=== PATIENT | female | born 1995 | race Caucasian/White ===

== ENCOUNTER 2017-07-24 14:41 | Emergency (ER) | payer BC ==
[2017-07-24] MEDS ORDERED: IPRATROPIUM/ALBUTEROL 3 ML DEYVIAL ONE (14:50)
[2017-07-24] MEDS ORDERED: methylPREDNISolone SOD SUCC 125 MG/2 ML VIAL IVP ONE (14:53)
[2017-07-24] MEDS ORDERED: RANITIDINE 50 MG/2 ML VIAL IVP ONE (14:53)
[2017-07-24] MEDS ORDERED: IPRATROPIUM/ALBUTEROL 3 ML DEYVIAL IH ONE (14:54)
--- NOTE | 2017-07-24 15:11 | EDPHY ---
H & P Stated Complaint: Allergic Reaction Time Seen by Provider: 07/24/17 14:41 - Personal History LMP (Females 10-55): Now Current Tetanus Diphtheria and Acellular Pertussis (TDAP): Yes - Medical/Surgical History Hx Asthma: No Hx Chronic Respiratory Disease: No Hx Diabetes: No Hx Cardiac Disease: No Hx Renal Disease: No Hx Cirrhosis: No Hx Alcoholism: No Hx HIV/AIDS: No Hx Splenectomy or Spleen Trauma: No Other PMH: tree nut allergy - Social History Smoking Status: Never smoked Constitutional: Initial Vital Signs Temperature (C) 36.8 C 07/24/17 14:58 Heart Rate 83 07/24/17 14:58 Respiratory Rate 20 07/24/17 14:58 Blood Pressure 138/79 H 07/24/17 14:58 O2 Sat (%) 100 07/24/17 14:58 O2 Delivery Mode Room Air Allergies/Adverse Reactions: tree nut Allergy (Verified 12/13/15 02:11) Home Medications: Medication Instructions Recorded Concerta 12/13/15 Medical Decision Making ED Course/Re-evaluation: CHIEF COMPLAINT: Exposed to cashew nuts allergic reaction HISTORY OF PRESENT ILLNESS: 22-year-old female who has a known pistachio Roxanna nut allergy. 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 She has difficulty breathing, swelling of her hands and feet, some hives, red eyes, swollen tongue and lips. She does not feel like fainting or near fainting. She is not dizzy. I met her upon arrival in the room. REVIEW OF SYSTEMS: A 10 point review of systems was performed and is negative with the exception of the elements mentioned in the history of present illness. PHYSICAL EXAM: HR, BP, O2 Sat, RR. Temp noted - normal blood pressure General Appearance: Mild distress with increased respiratory rate. Alert, well hydrated, appropriate. Head: Atraumatic without scalp tenderness or obvious injury Eyes: Pupils equal, round, reactive to light and accommodation, EOMI, no trauma , bilateral conjunctivae 0 injection Ears: Clear bilaterally, no perforation, normal landmarks Nose: Atraumatic, no rhinorrhea, clear. Throat: There is no erythema or exudates, no lesions, normal tonsils, mucus membranes moist. Neck: Supple, 2+ carotid upstroke, nontender, no lymphadenopathy. Respiratory: No retractions, no distress, significant end-expiratory wheezes, and no accessory muscle use. Lungs are clear to auscultation bilaterally. Cardiovascular: Regular rate and rhythm, no murmurs, rubs, or gallops. Bilateral carotid, radial, dorsalis pedis, and posterior tibial pulses intact. Good capillary refill all extremities. Gastrointestinal: Abdomen is soft, nontender, non-distended, no masses, no rebound, no guarding, no peritoneal signs. Musculoskeletal: Normal active ROM of all extremities, atraumatic. Neurological: Alert, appropriate, and interactive. The patient has normal DTRs and non-focal cranial nerves, motor, sensory, and cerebellar exam. Skin: Urticaria diffuse, good turgor, no nodules on palpation. Past medical history: Prior tree nut allergy Past surgical history: None Family history: Noncontributory Social history: Student, single, does not abuse tobacco drugs or alcohol DIFFERENTIAL DIAGNOSIS: The differential diagnosis included but was not limited to angioedema, anaphylaxis, anaphylactoid reaction, urticarial reaction , and other infectious causes for skin rash. MEDICAL DECISION MAKING: This 22-year-old healthy female was exposed to cashew nuts. She has other tree nut allergies and obviously she can add cashew nuts to that list. I immediately gave this patient epinephrine 0.3 mg intramuscularly. She received a duo nebulizer treatment. She received 125 mg of Solu-Medrol intravenously. She received Zantac 50 mg. She received Benadryl 50 mg. Her vital signs remained stable. There is no evidence of hypotension syncope or near-syncope and therefore no evidence of anaphylactic shock. This patient is responding well to my treatment. She has epinephrine pens at home she does not have 1 with her and she does not need refills. I will keep her on prednisone for the next 5 days. She will also use a H2 judit, and Benadryl as needed - Data Points Medications Given: Discontinued Medications Albuterol/Ipratropium (Duoneb) 3 ml IH EDNOW ONE Stop: 07/24/17 14:55 Last Admin: 07/24/17 14:56 Dose: 3 ml Diphenhydramine HCl (Benadryl Injection) 50 mg IVP EDNOW ONE Stop: 07/24/17 14:54 Last Admin: 07/24/17 14:55 Dose: 50 mg Epinephrine HCl (Epinephrine) 0.3 mg IM EDNOW ONE Stop: 07/24/17 14:54 Last Admin: 07/24/17 14:55 Dose: 0.3 mg Methylprednisolone Sodium Succinate (Solu-Medrol) 125 mg IVP EDNOW ONE Stop: 07/24/17 14:54 Last Admin: 07/24/17 14:55 Dose: 125 mg Ranitidine HCl (Zantac) 50 mg IVP EDNOW ONE Stop: 07/24/17 14:54 Last Admin: 07/24/17 14:54 Dose: 50 mg Departure - Departure Disposition: Home, Routine, Self-Care Clinical Impression: Allergic reaction Qualifiers: Encounter type: initial encounter Qualified Code(s): T78.40XA - Allergy, unspecified, initial encounter Condition: Good Instructions: Ranitidine (By mouth), Prednisone (By mouth), Epinephrine (By injection), Food Allergy (ED), General Allergic Reaction (ED) Additional Instructions: 1. Take prednisone as prescribed. Take your first dose tomorrow. 2. Take Zantac as prescribed. Take your first dose tomorrow. 3. Use EpiPen in case of worsening or recurring reaction. 4. 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 5. Return to the ED for worsening of condition. Referrals: YANIV MCGEE [Other] - As per Instructions Misha Phillips MD [Medical Doctor] - As per Instructions
[2017-07-24] MEDS ORDERED: methylPREDNISolone SOD SUCC 125 MG/2 ML VIAL ONE (16:00)
[2017-07-24] MEDS ORDERED: RANITIDINE 50 MG/2 ML VIAL ONE (16:00)
[2017-07-24 16:33] VITALS: BP 118/68
== END 2017-07-24 16:32 | disposition home or self-care (01) ==
DX: T78.1XXA Other adverse food reactions, not elsewhere classified, initial encounter (principal)
CPT/HCPCS: 96374; J0171; J1200; J2780; J2930